=== PATIENT | male | born 1990 | race Caucasian/White ===

== ENCOUNTER 2024-11-28 19:09 | Emergency (ER) | payer BC, MEDICAID ==
[~2024-11-28] VITALS: Ht 182.9 cm; Wt 80.0 kg
[2024-11-28 19:36] LABS: BASOPHILS # (AUTO) 0.1 X10'3 (0-0.2); BASOPHILS % (AUTO) 0.8 % (0-1); EOSINOPHILS # (AUTO) 0.1 X10'3 (0-0.9); EOSINOPHILS % (AUTO) 1.2 % (0-6); HEMATOCRIT 48.1 % (42.0-52.0); HEMOGLOBIN 16.3 g/dl (14.0-17.9); LYMPHOCYTES # (AUTO) 2.6 X10'3 (1.1-4.8); LYMPHOCYTES % (AUTO) 36.2 % (21-51); MEAN CORPUSCULAR HEMOGLOBIN 29.8 PG (27.0-31.0); MEAN CORPUSCULAR VOLUME 87.9 FL (78-98); MONOCYTES # (AUTO) 0.5 X10'3 (0-0.9); MONOCYTES % (AUTO) 7.2 % (2-12); NEUTROPHILS # (AUTO) 3.9 X10'3 (1.8-7.7); NEUTROPHILS % (AUTO) 54.6 % (42-75); PLATELET COUNT 251 X10'3 (140-440); RED BLOOD COUNT 5.47 X10'6 (4.70-6.10); WHITE BLOOD COUNT 7.1 X10'3 (4.5-11.0)
[2024-11-28 19:44] VITALS: TEMP 99.1
[2024-11-28 19:50] LABS: ALBUMIN 4.1 G/DL (3.4-5.0); ANION GAP 8 (8-16); BLOOD UREA NITROGEN 11 MG/DL (7-18); BUN/CREATININE RATIO 10.5 (10.0-20.0); CHLORIDE 104 MMOL/L (99-107); CREATININE 1.05 MG/DL (0.60-1.10); GLUCOSE 90 MG/DL (70-104); POTASSIUM 3.2 MMOL/L (3.5-5.1); PRO BRAIN NATRIURETIC PEPTIDE 66 PG/ML (0-125); SODIUM 140 MMOL/L (135-145); TOTAL CARBON DIOXIDE 28.1 MMOL/L (24-32); eCRCL 111 ML/MIN; eGFR 82 ML/MIN
--- NOTE | 2024-11-28 21:25 | RADIOLOGY REPORT ---
CHEST RADIOGRAPH REASON FOR EXAM: Chest pain COMPARISON: None TECHNIQUE: One view of the chest is provided FINDINGS: The cardiomediastinal silhouette is within normal limits for technique. There is no focal a irspace disease. There is no significant pleural effusion. No acute bony abnormality is identified. IMPRESSION: No radiographic evidence of acute cardiopulmonary process.
--- NOTE | 2024-11-28 22:24 | Physician Documentation ---
History of Present Illness ~ Chief Complaint: Chest Pain Stated Complaint: CP Time Seen by MD: 21:46 Primary Medical Doctor: [facility] HPI This is a 34-year-old male who presents with an episode of sternal nonradiating chest pain described as pressure onset while experiencing stress at work, patient reports some shortness of breath though reports no diaphoresis nausea or vomiting. Patient reports pain increased through the day at work for approximately 2 hours at which point he went home sick from work and went to sleep with the pain decreasing, patient reports that is when he awoke his coworkers has been concerned due to his chest pain and he presented to the emergency department even though pain was resolving. Patient reports he does have some history of anxiety and anxiety attacks. Patient reports no cardiac history in himself or immediate family members. Medication Reconciliation Allergies: Coded Allergies: No Known Allergies (Unverified , 10/09/14) Past Medical History Past Medical History: Anxiety Past Surgical History: other Alcohol Use: Occasionally Drug Use: none Review of Systems ROS Sternal nonradiating chest pain as stated above in the HPI, otherwise all systems are reviewed and negative. Physical Exam Vital Signs: Temperature: 99.1, Source: Oral, Heart Rate: 63, Respiratory Rate: 16, BP: 118/81, Pulse Oximetry: 98, Weight: 80.000 Oxygen Flow Rate: 0 Physical Exam VITALS: Reviewed and as above. GENERAL: Alert, nontoxic appearing, no apparent distress. RESPIRATORY: No increased work of breathing, no respiratory distress, speaking in full clear sentences, lung sounds clear in all [place] CHEST: Nontender to palpation CV: Regular rate and rhythm no murmur BACK: No CVA tenderness Progress Results/Orders Results/Orders Vital Signs 11/28/24 11/28/24 11/28/24 19:44 20:36 22:36 Temp 99.1 Pulse 63 68 Resp 16 16 B/P (MAP) 118/81 127/76 Pulse Ox 98 99 O2 Flow Rate 0 Laboratory Tests Test 11/28/24 19:18 11/28/24 21:02 White Blood Count 7.1 Red Blood Count 5.47 Hemoglobin 16.3 Hematocrit 48.1 Mean Corpuscular Volume 87.9 Mean Corpuscular Hemoglobin 29.8 Mean Corpuscular Hemoglobin Concent 34.0 Red Cell Distribution Width 12.0 Platelet Count 251 Mean Platelet Volume 8.0 Neutrophils (%) (Auto) 54.6 Lymphocytes (%) (Auto) 36.2 Monocytes (%) (Auto) 7.2 Eosinophils (%) (Auto) 1.2 Basophils (%) (Auto) 0.8 Neutrophils # (Auto) 3.9 Lymphocytes # (Auto) 2.6 Monocytes # (Auto) 0.5 Eosinophils # (Auto) 0.1 Basophils # (Auto) 0.1 CBC Comment Sodium Level 140 Potassium Level 3.2 L Chloride Level 104 Carbon Dioxide Level 28.1 Anion Gap 8 Blood Urea Nitrogen 11 Creatinine 1.05 Estimated GFR/1.73 m2 82 BUN/Creatinine Ratio 10.5 Glucose Level 90 Calcium Level 9.0 Troponin I High Sensitivity 6 6 Pro-B-Type Natriuretic Peptide 66 Albumin 4.1 Chemistry Comments Troponin I High Sens Percent Delta 0 Troponin I Hi Sens Absolute Change 0 EKG/XRAY/CT/US/VASC/MRI EKG : Additional Comment EKG at 7:13 p.m. interpreted by myself as sinus rhythm at a rate of 65, normal axis, benign early repolarization in leads V2, V3, V4 and V5 otherwise no ST- elevation or depression Chest X-Ray : Additional Comments CHEST RADIOGRAPH REASON FOR EXAM: Chest pain COMPARISON: None TECHNIQUE: One view of the chest is provided FINDINGS: The cardiomediastinal silhouette is within normal limits for technique. There is no focal airspace disease. There is no significant pleural effusion. No acute bony abnormality is identified. IMPRESSION: No radiographic evidence of acute cardiopulmonary process. Electronically Signed by:GIFTY LARSEN MD Date & Time: 11/28/242122 Dictated by: GIFTY LARSEN MD Dictation date and time: 11/28/241939 I have reviewed and agree with the radiology report. I have reviewed and interpreted the imaging as: No focal consolidation or pneumothorax Heart Score: Heart Score Response (Comments) Value History Slightly Suspicious 0 EKG Normal 0 Age <45 0 Risk Factors No known risk factors 0 Troponin Normal limit 0 Total 0 Medical Decision Making Findings This 34-year-old male presented with sternal chest pain described as chest pressure along with shortness of breath that became progressively worse while working and experiencing stress at work, it was reassuring patient reported symptoms began resolving after he left work and are no longer present. Additionally reassuring X ray not show evidence of pneumonia or pneumothorax, EKG did not demonstrate evidence of infarction, ischemia, or arrhythmia, and serial troponins were not elevated. Remainder of patient's labs did not demon strate significant evidence of electrolyte or metabolic abnormality and patient's physical exam was benign and he is otherwise well-appearing, patient is appropriate for outpatient follow up. Patient advised to follow up primary care provider which he verbalized understanding of, patient provided careful return to care precautions which he verbalized understanding of. Differential Dx:Considerations: Include: angina, aortic dissection, chest wall pain, cholelithiasis, costochondritis, esophageal reflux/spasm, gastritis, herpes zoster, myocardial infarction, pericarditis, pleuritis, pancreatitis, pneumonia, pneumothorax, pulmonary embolus, other (Anxiety) Departure Disposition: HOME / SELF CARE / HOMELESS Impression: Primary Impression: Chest pain Qualified Codes: R07.9 - Chest pain, unspecified Condition: Improved Discharge Instructions: Nonspecific Chest Pain, Adult Additional Instructions: Please follow up with your primary care provider in the next few days. Please return to the emergency department for any new or worsening concerning symptoms. Referrals: NO PRIMARY CARE PROVIDER (PCP) Education Educated: Patient Educated regarding: diagnosis, treatment, prognosis, need for follow up Signature Scribe Signature: No scribe Attestation: The note accurately reflects work and decisions made by me.MARY JANE Myers 11/29/24 02:10 LUCY RUANO Nov 28, 2024 22:24
[2024-11-28 22:36] VITALS: BP 127/76; PULSE 68; RESP 16; O2SAT 99
--- NOTE | 2024-11-29 07:10 | ELECTROCARDIOGRAPH REPORT ---
[facility] Test Date: 2024-11-28 Test Time: 19:13:57 Pat Name: AV URBINA Department: EMERGENCY ROOM [id number] Room: Gender: M Helpdesk Specialist: MARY : 1990 Requested By: CHARLOTTE FERNANDEZ Order Number: [id number] Reading MD: Dr. Pancho Johnson Measurements Intervals [place] Rate: 65 P: 66 [place]: 140 QRS: 83 QRSD: 99 T: 69 QT: 387 QTc: 403 Interpretive Statements Sinus rhythm ST elev, probable normal early repol pattern Baseline wander in lead(s) V1 Electronically Signed On 11-30-2024 6:35:[address] Pancho Johnson Please click the below link to view image of tracing.
== END 2024-11-28 22:37 | disposition home or self-care (01) ==
LOC: ER 19:10
DX: R07.9 Chest pain, unspecified (principal); F41.9 Anxiety disorder, unspecified
CPT/HCPCS: 36415; 71045; 80048; 83880; 84484; 85025; 93005; 99285